=== PATIENT | male | born 1955 | race Caucasian/White ===

== ENCOUNTER 2023-03-18 05:48 | Observation (INO) ==
--- NOTE | 2023-03-10 11:25 | Anesthesiology Consultation ---
Date of Service March 10, 2023 Assessment & Plan (1) Encounter for pre-operative examination: - Per skid worker on 03/10/2023: No known infectious disease contacts, current infectious disease symptoms in past 10 days or COVID positive test result in the past 90 days. Chart Review Chart Review: Acceptable Risk for Surgery and Patient NOT seen in Pre Admission Testing History Surgery Operation Date: 03/18/23 07:30 Proposed Procedures p Laparoscopic Robotic Assisted Radical Retropubic Prostatectomy, Possible Open, Possible Lymph Node Dissection - Juaquin Skelton MD Height/Weight Height: 5 ft 7 in Weight: 74.843 kg Allergies Allergy/AdvReac Type Severity Reaction Status Date / Time No Known Drug Allergies Allergy Verified 02/10/23 13:18 Medications Home Medications Medication Instructions Recorded Confirmed Last Taken losartan 50 mg tablet 50 mg PO QPM 09/11/22 03/10/23 Unknown tamsulosin 0.4 mg capsule (Flomax) 0.4 mg PO QPM 09/11/22 03/10/23 Unknown psyllium husk 3.4 gram/5.4 gram 1 tbsp PO QAM 03/10/23 03/10/23 Unknown oral powder (Metamucil) Past Medical History Medical History Colon polyps Detached retina, bilateral laser surgical repair Fractured pelvis May 2022 - doing well currently. HTN (hypertension) Prostate cancer dx 2022 Past Family History Family History Father Hypertension Cancer Prostate Brother Cancer Prostate Other No family history of adverse response to anesthesia No family history of bleeding disorder Past Surgical History Surgical History H/O cataract removal with insertion of prosthetic lens H/O prostate biopsy (~10/2022) History of colonoscopy History of detached retina repair bilateral S/P tonsillectomy Social History Smoking Status: Never smoker Do You Dip or Chew Tobacco: No (quit) Hx Alcohol Use: Yes Alcohol type: beer alcohol intake frequency: holidays/special occasions only Hx Substance Use: No substance use type: does not use Lab Results Anesthesia Preop Results Results Anesthesia Widget: WBC 5.09 K/ul (4.8-10.8) 02/25/23 Hgb 13.7 g/dl (14.0-18.0) L 02/25/23 Hct 41.3 % (42.0-52.0) L 02/25/23 Plt 200 K/uL (130-400) 02/25/23 Na 140 mmol/L (136-145) 02/25/23 K 4.3 mmol/L (3.5-5.1) 02/25/23 Cl 109 mmol/L (98-107) H 02/25/23 CO2 27 mmol/L (21-32) 02/25/23 BUN 23 mg/dl (6-23) 02/25/23 Creat 0.88 mg/dl (0.6-1.4) 02/25/23 Glucose Level 97 mg/dl (70-99(Fasting)) 02/25/23 TSH 0.988 uIU/mL (0.30-4.50) 01/17/23 Testing Electrocardiogram Date: 02/25/23 Sinus rhythm, rate 60 bpm Abnormal left axis deviation Nonspecific T wave abnormality Chest X-Ray Date: 02/25/23 Negative for active cardiopulmonary disease
[2023-03-18] MEDS ORDERED: HEPARIN SOD 5,000 UNIT/0.5 ML VIAL SQ SCH (06:00)
[2023-03-18] MEDS ORDERED: LR 15ML/HR IV SCH (06:00)
[2023-03-18] MEDS ORDERED: LACTATED RINGER'S 1,000 ML IV SCH (06:00)
[2023-03-18] MEDS ORDERED: fentaNYL citrate PF 100 MCG/2 ML VIAL ONE (06:46)
[2023-03-18] MEDS ORDERED: KETAMINE 50 MG/5 ML SYRINGE ONE (06:46)
[2023-03-18] MEDS ORDERED: SUGAMMADEX SODIUM 200 MG/2 ML VIAL IV ONE (06:46)
[2023-03-18] MEDS ORDERED: MIDAZOLAM HCL 1 MG/ML 2ML VIAL ONE (06:46)
[2023-03-18] MEDS ORDERED: ONDANSETRON INJ 2 MG/ML 2 ML VIAL ONE (07:00)
[2023-03-18] MEDS ORDERED: DEXAMETHASONE SOD INJ 4 MG/ML VIAL ONE (07:00)
[2023-03-18] MEDS ORDERED: LIDOCAINE 2% 2 ML VIAL/AMP(20MG/ML) INFIL ONE (07:00)
[2023-03-18] MEDS ORDERED: PROPOFOL IV EMULSION 10 MG/ML 20 ML VIAL IV ONE (07:00)
[2023-03-18] MEDS ORDERED: ROCURONIUM BROMIDE 10 MG/ML 5 ML VIAL IV ONE (07:00)
[2023-03-18] MEDS ORDERED: BUPIVACAINE 0.5 % 5 MG/1 ML MPF 30ML VIAL ONE (07:17)
--- NOTE | 2023-03-18 07:33 | History & Physical Report ---
Date of Service March 18, 2023 Assessment & Plan (1) Prostate cancer: Plan: Presenting today for definitive treatment in the form of prostatectomy with lymph node dissection - risks, benefits, and expectations reviewed History of Present Illness Primary Care Provider: Chirag Suarez Prostate cancer - here for definitive treatment Allergies Allergy/AdvReac Type Severity Reaction Status Date / Time No Known Drug Allergies Allergy Verified 03/18/23 06:34 Home Medications Medication Instructions Recorded Confirmed Type losartan 50 mg tablet 50 mg PO QPM 09/11/22 03/18/23 History tamsulosin 0.4 mg capsule (Flomax) 0.4 mg PO QPM 09/11/22 03/18/23 History psyllium husk 3.4 gram/5.4 gram 1 tbsp PO QAM 03/10/23 03/18/23 History oral powder (Metamucil) Past Med/Surg History Medical History Colon polyps Detached retina, bilateral laser surgical repair Fractured pelvis May 2022 - doing well currently. HTN (hypertension) Prostate cancer dx 2022 Surgical History H/O cataract removal with insertion of prosthetic lens H/O prostate biopsy (~10/2022) History of colonoscopy History of detached retina repair bilateral S/P tonsillectomy Family History Father Hypertension Cancer Prostate Brother Cancer Prostate Other No family history of adverse response to anesthesia No family history of bleeding disorder Social History Smoking Status: Never smoker Second Hand Exposure: No; Do You Dip or Chew Tobacco: No (quit); Tobacco Cessation Education Requested by Patient: No Hx Alcohol Use: Yes Alcohol type: beer Hx Substance Use: No Preferred Language: Italian Communication Ability: Effective Hearing Ability: Use of Hearing Aid Pier Runner Required: No Beliefs That Will Affect Care: None marital status: / Current Living Situation: Family Current Living Situation Comment: lives with daughter current occupational status: retired Other Information That Helps Us Care for You: No Feels Safe at Home: Yes Safety Concerns: Feels Safe At This Time during the past year weight has: remained stable Physical Activity Frequency Comment: remains physically active Assistive Devices: Hearing Aid - Bilateral Physical Exam Constitutional: well developed and well nourished Neck: neck nontender Respiratory: normal respiratory effort; no respiratory distress and does not use accessory muscles Cardiovascular: Rate/Rhythm: regular rate Vessels: radial pulses present Extremities: no edema Gastrointestinal (Abdomen): Inspection/Auscultation: abdomen normal to inspection Percussion/Palpation: abdomen soft; abdomen nontender and no guarding Musculoskeletal: Head/Neck/Chest: normocephalic and head atraumatic Extremities: extremities normal to inspection Skin: no rashes and no lesions Trauma: no evidence of skin trauma Neurologic: awake; not obtunded Speech / Cognition: normal speech Motor/Sensory: no tremor Psychiatric: Orientation: alert and oriented x 3 Genitourinary: no CVA tenderness Lymphatic: no lymphadenopathy Results & Data Vital Signs (Past 12 Hours) Vital Signs Temp Pulse Resp BP Pulse Ox O2 Del Method 03/18/23 06:39 36.5 C 67 20 150/82 H 98 Room Air
[2023-03-18] MEDS ORDERED: ePHEDrine sulfate 50 MG/ML AMP IV PRN (08:13)
[2023-03-18] MEDS ORDERED: ONDANSETRON INJ 2 MG/ML 2 ML VIAL IV PRN ×2 (08:13→12:00)
[2023-03-18] MEDS ORDERED: ATROPINE SULFATE 0.1 MG/ML 10ML SYR IV PRN (08:13)
[2023-03-18] MEDS ORDERED: SURGICEL ABSORB HEMOSTAT 2IN X 14IN TOP ONE (08:41)
[2023-03-18] MEDS ORDERED: FLOSEAL HEMOSTATIC MATRIX 10ML TOP ONE (10:06)
--- NOTE | 2023-03-18 10:33 | Operative Report ---
[facility] Post Operative Report Pre & Post Diagnosis Operation Date: 03/18/23 07:30 Pre-Op Diagnosis: Prostate Cancer, Elevated PSA Post-Op Diagnosis: Prostate Cancer, Elevated PSA I identified the patient and participated in the time-out.: Yes Procedure Operation Date: 03/18/23 07:30 Actual Procedures p Robotic Assisted Laparoscopic Radical Retropubic Prostatectomy, Pelvic Lymph Node Dissection(Not Applicable) - Juaquin Skelton MD Surgeon Juaquin Skelton MD Blend Plant Operator Elisha Woods Estimated Blood Loss 100 Findings Consistent with Post-Op Diagnosis Specimens 1. Periprostatic fat 2. Right pelvic lymph nodes 3. Left pelvic lymph nodes 4. Prostate and seminal vesicles Description of Procedure The patient was identified in the preoperative holding area, appropriate informed consents were reviewed and completed, and he was transported to the operating suite. Subcutaneous heparin was administered in the pre-operative holding area. Upon arrival in the operating suite, he received appropriate antibiotics and general anesthesia. He was positioned in dorsal lithotomy, a B&O suppository was inserted after digital rectal exam, and he was prepped and draped in standard fashion. A Brasher catheter was inserted in the sterile field. A Veress needle was passed per umbilicus with uniform insufflation of the abdomen to 15mmHg. He was placed in steep Trendelenburg position. A periumbilical incision was then made to accommodate a 12mm Visiport with 10mm 0degree laparoscope. Inspection of the abdomen was carried out, and there was no evidence of traumatic entry or injury secondary to the Veress needle. After confirming a clear anterior abdominal wall, ports were subsequently placed in standard robotic prostatectomy fashion without incident. To begin the robotic portion of the case, the left lateral aspect of the sigmoid was mobilized off of the left pelvic side wall to allow the pouch of Danielito to be appropriately visualized. I then made an incision in the pouch of Danielito, overlying the seminal vesicles. Both SVs as well as the ampullae of the vasa were entirely dissected, with the vasa transected 3cm from the prostate. The medial umbilical ligaments were then controlled with bipolar electrocautery just inferior to the umbilicus. Following cauterization, they were divided utilizing monopolar cautery. A peritoneal incision was carried from this location to the medial aspect of the internal inguinal rings bilaterally with care to avoid opening through the ring. This incision was concluded when the vas deferens was reached. Dissection of the bladder and prostate off of the posterior aspect of the pubic arch was completed allowing full visualization of the prostate. The fat overlying the prostate was removed en bloc and passed off the table as a specimen labeled "periprostatic fat". The endopelvic fascia was cleared during this portion of the procedure, and subsequently opened - first on the right and then the left. The incision through the endopelvic fascia began near the prostate-bladder junction and was carried to the apex with extreme care to preserve all lateral levator musculature as well as the periurethral musculature and sphincter complex. I additionally preserved the puboprostatic ligaments. I then controlled the DVC with a 3-0 V-lock suture in overla pping/figure of 8 fashion. The lymph node dissection was then conducted. External iliac vessels were identified on the pelvic side wall. The packet of fat and lymphatic tissue that resides just under the iliac vein was elevated and off of the vein with a split and roll technique. The packet was dissected laterally to the circumflex vein and distally to the obturator nerve which was preserved. The proximal aspect of the packet was carried towards the bifurcation of the iliac vessels. A combination of monopolar and bipolar cautery were used to assist with control. After completing the dissection on both sides, the packets were collected and passed off of the table as specimens labeled "pelvic lymph nodes". My attention then returned to the prostate, with identification of the bladder neck aided by gentle traction on the Brasher catheter and lateral to medial pressure at the presumed level of the bladder neck with the robotic instruments. An anterior cystotomy was made, the Brasher balloon deflated and the catheter guided through the incision to allow anterior retraction. I attempted to preserve maximal bladder neck musculature as I circumferentially dissected around the bladder neck. After incision through the posterior aspect of the mucosa, the dissection was carried through detrusor muscle until the bilateral ampullae of the vasa were identified. The previously dissected vasa and SVs were brought through the incision and used to elevated the prostate anteriorly. A posterior plane behind the prostate was then developed - splitting Denonvilliers's fascia. This dissection was carried as far as possible towards the apex as well as far as possible laterally. An incision in the lateral prostatic fascia was then made bilaterally to facilitate control of the vascular pedicles and preservation of the nerve bundles. Vasculature running along the posterior/lateral aspect of the prostate was preserved as well as the tissue containing the nerves. The pedicles were then controlled with a series of Weck clips. The apical attachments of the prostate were remaining at that stage. The DVC was divided after control with bipolar cautery over the prostate. Continuous inspection from anterior and lateral views allowed me to closely follow the apical contour of the prostate and maximally preserve urethral length and tissue. The prostate was entirely freed at that point, and collected in an EndoCatch bag before being moved out of the field of vision. Hemostasis was confirmed and anastomosis of the bladder and urethra was completed utilizing a double armed V- Lock stitch. A new Brasher catheter was inserted and the anastomosis tested with irrigation. There was no evidence of leak. A edvin style stitch was placed bilaterally to functionally marsupialize the area of the lymph node dissection. The robot was undocked, the specimen extracted through expansion of the nery- umbilical camera port. The fascia was closed with a series of 0-PDS figure of 8 stitches. The right sociology research assistant port was closed in two layers - with a figure of 8 0-Vicryl to reapproximate the fascia followed by 4-0 Monocryl to close the skin. Monocryl was used to close all other skin incisions. All wounds were dressed with Dermabond. The case was concluded and the patient taken to the PACU in stable condition. Elisha Woods assisted from incision to closure I attest to the content of the Intraoperative Record and any orders documented therein. Any exceptions are noted below.
[2023-03-18] MEDS: HYDROmorphone INJ 1 MG/ML SYRINGE IV PRN ×2 (11:03→11:08)
[2023-03-18 11:08] LABS: Hematocrit (blood only) 38.6 % (42.0-52.0); Hemoglobin 13.1 g/dl (14.0-18.0); Mean Corpuscular Hemoglobin 30.9 pg (25.0-34.0); Mean Corpuscular Hgb Conc 33.9 g/dL (32.0-36.0); Mean Platelet Volume 10.9 fL (9.4-12.4); Platelet Count 193 K/uL (130-400); RDW Standard Deviation 40.2 fL (36.4-46.3); Red Blood Count 4.24 M/uL (4.70-6.10); White Blood Count 12.84 K/ul (4.8-10.8)
[2023-03-18 11:25] LABS: BUN Creatinine Ratio 22.4 (10-20); Calcium 8.9 mg/dl (8.6-10.3); Creatinine Clr Calc Pharmacy 67.4 ml/min; Est GFR (African American) 91.4 ml/min; Est GFR (Non-African American) 78.9 ml/min; Potassium 4.2 mmol/L (3.5-5.1)
[2023-03-18 11:31] LABS: Basophils # (auto) 0.03 K/uL (0-0.2); Basophils % (auto) 0.2 %; Immature Granulocytes # (auto) 0.04 K/uL (0.01-0.20); Immature Granulocytes % (auto) 0.3 %; Lymphocytes # (auto) 0.62 K/uL (1.2-3.4); Lymphocytes % (auto) 4.8 %; Monocytes # (auto) 0.18 K/uL (0.11-0.59); Monocytes % (auto) 1.4 %; Neutrophils # (auto) 11.97 K/uL (1.40-6.50); Neutrophils % (auto) 93.3 %
[2023-03-18] MEDS ORDERED: MoRPHine SULFATE 2 MG/ML CARP IV PRN (11:58)
[2023-03-18] MEDS ORDERED: oxyCODONE HCL IR 5 MG TAB (IMMEDIATE RELEASE) PO PRN (11:58)
[2023-03-18] MEDS ORDERED: MoRPHine SULFATE 4 MG/ML 1 ML CARP\\VIAL IV PRN (11:58)
[2023-03-18] MEDS: LACTATED RINGER'S 1,000 ML IV SCH ×2 (12:20→22:15)
[2023-03-18] MEDS: ACETAMINOPHEN 325 MG TAB PO SCH ×3 (12:20→23:33)
--- NOTE | 2023-03-18 12:55 | Anesthesiology Progress Note ---
Date of Service March 18, 2023 Anesthesia Post Procedure Vital Signs Vital Signs: Temp Pulse Pulse Resp BP Pulse Ox O2 Del Method 03/18/23 12:15 88 L Room Air 03/18/23 12:43 70 16 143/71 H 95 Nasal Cannula 03/18/23 12:16 75 16 151/71 H 96 Nasal Cannula 03/18/23 11:50 36.3 C L 73 17 147/73 H 93 Room Air 03/18/23 11:25 67 16 144/74 H 95 Nasal Cannula 03/18/23 11:15 36.4 C L 66 12 141/79 H 95 Nasal Cannula 03/18/23 11:05 67 14 139/73 95 Oxymask 03/18/23 10:55 70 14 118/50 L 95 Oxymask 03/18/23 10:45 65 18 117/66 99 Oxymask 03/18/23 10:35 36.7 C 66 16 116/59 L 97 Oxymask 03/18/23 06:39 36.5 C 67 20 150/82 H 98 Room Air O2 Flow Rate 03/18/23 12:15 03/18/23 12:43 2 03/18/23 12:16 2 03/18/23 11:50 03/18/23 11:25 3 03/18/23 11:15 3 03/18/23 11:05 4 03/18/23 10:55 4 03/18/23 10:45 6 03/18/23 10:35 8 03/18/23 06:39 Pain Intensity Abdomen: Pain Intensity: 3 Transfer of Care Handoff Completed per policy Notes Mental Status: alert / awake / arousable and participated in evaluation Nausea / Vomiting: adequately controlled Pain: adequately controlled Airway Patency, RR, SpO2: stable & adequate BP & HR: stable & adequate Hydration State: stable & adequate Anesthetic Complications: no major complications apparent and Pt Satisfied with anesthetic care
[2023-03-18] MEDS: ceFAZolin 2000MG 2,000 MG/15 ML SYR IV SCH ×2 (16:41→23:33)
[2023-03-18] MEDS: DOCUSATE SODIUM 100 MG CAP PO SCH (20:13)
[2023-03-18] MEDS: oxyCODONE HCL IR 5 MG TAB (IMMEDIATE RELEASE) PO PRN (20:13)
[2023-03-18] MEDS: HEPARIN SOD 5,000 UNIT/0.5 ML VIAL SQ SCH (20:41)
[2023-03-18] MEDS ORDERED: LOSARTAN POTASSIUM 50 MG TAB PO SCH (21:00)
[2023-03-18] MEDS ORDERED: Nursing to Pharmacy Communication SCH (22:45)
[2023-03-19] MEDS: ACETAMINOPHEN 325 MG TAB PO SCH (05:38)
[2023-03-19] MEDS: oxyCODONE HCL IR 5 MG TAB (IMMEDIATE RELEASE) PO PRN ×2 (05:38→11:05)
[2023-03-19] MEDS: DOCUSATE SODIUM 100 MG CAP PO SCH (08:05)
[2023-03-19 08:21] LABS: Basophils # (auto) 0.02 K/uL (0-0.2); Basophils % (auto) 0.1 %; Hematocrit (blood only) 35.7 % (42.0-52.0); Hemoglobin 12.2 g/dl (14.0-18.0); Immature Granulocytes # (auto) 0.05 K/uL (0.01-0.20); Immature Granulocytes % (auto) 0.4 %; Lymphocytes # (auto) 1.49 K/uL (1.2-3.4); Lymphocytes % (auto) 10.6 %; Mean Corpuscular Hemoglobin 30.7 pg (25.0-34.0); Mean Corpuscular Hgb Conc 34.2 g/dL (32.0-36.0); Mean Corpuscular Volume 89.9 fL (80.0-100.0); Mean Platelet Volume 11.4 fL (9.4-12.4); Monocytes # (auto) 1.26 K/uL (0.11-0.59); Neutrophils % (auto) 79.9 %; Platelet Count 192 K/uL (130-400); RDW Coefficient of Variation 12.1 % (11.5-14.5); RDW Standard Deviation 39.8 fL (36.4-46.3); Red Blood Count 3.97 M/uL (4.70-6.10); White Blood Count 14.02 K/ul (4.8-10.8)
[2023-03-19 08:45] LABS: BUN Creatinine Ratio 19.3 (10-20); Calcium 8.8 mg/dl (8.6-10.3); Creatinine Clr Calc Pharmacy 79.6 ml/min; Est GFR (African American) 104.8 ml/min; Est GFR (Non-African American) 90.4 ml/min; Potassium 4.2 mmol/L (3.5-5.1)
[2023-03-19] MEDS ORDERED: PSYLLIUM or GUAR GUM FIBER POWDER PACKET PO SCH (09:00)
--- NOTE | 2023-03-19 09:43 | Urology Progress Note ---
Date of Service March 19, 2023 Assessment & Plan (1) Prostate cancer: Plan: Postop day #1 status post prostatectomy Continue ambulation Advance diet Discharge home Admission and Anticipated Discharge Date Admission Date: March 18, 2023 Subjective Doing great after his surgery yesterday Ready for discharge home Urine is clear Labs are stable [facility] Abdomen soft Physical Exam Physical Exam: Incisions appropriate Abdomen soft Urine clear Results & Data Vital Signs (Past 12 Hours) Vital Signs Temp Pulse Resp BP Pulse Ox O2 Del Method 03/19/23 07:11 36.9 C 53 L 16 122/80 94 Room Air 03/19/23 04:11 36.7 C 65 18 123/63 94 Room Air 03/18/23 22:36 36.7 C 70 16 133/61 95 Room Air [facility] Care Time/CCT Total # of Minutes Spent Total Time Spent with Patient: Total time spent is greater than 50% in coordination of care (as documented) at patient's floor/unit and/or counseling patient: Coding Level of Care Code None Diagnoses Prostate cancer C61
--- NOTE | 2023-03-19 10:01 | Discharge Summary ---
Date of Service March 19, 2023 Admission HPI Per Admitting Provider Prostate cancer - here for definitive treatment Admission Exam Per Admitting Provider Constitutional well developed and well nourished Neck neck nontender Respiratory normal respiratory effort; no respiratory distress and does not use accessory muscles Cardiovascular Rate/Rhythm: regular rate Vessels: radial pulses present Extremities: no edema Gastrointestinal (Abdomen) Inspection/Auscultation: abdomen normal to inspection Percussion/Palpation: abdomen soft; abdomen nontender and no guarding Musculoskeletal Head/Neck/Chest: normocephalic and head atraumatic Extremities: extremities normal to inspection Skin no rashes and no lesions Trauma: no evidence of skin trauma Neurologic awake; not obtunded Speech / Cognition: normal speech Motor/Sensory: no tremor Psychiatric Orientation: alert and oriented x 3 Genitourinary no CVA tenderness Lymphatic no lymphadenopathy Principal Diagnosis Prostate Cancer Discharge Exam General: well-appearing, no acute distress HEENT: Normocephalic, mucous membranes moist Pulmonary: Nonlabored respirations Abdomen: Nondistended Extremities: Moves all 4 spontaneously Neuro: No gross deficits Psych: alert and oriented, normal mood Skin: Warm, dry, no rashes noted : Brasher draining clear yellow urine Discharge Data Allergies Allergy/AdvReac Type Severity Reaction Status Date / Time No Known Drug Allergies Allergy Verified 03/18/23 06:34 Procedures Performed Operation Date: 03/18/23 07:30 Actual Procedures p Robotic Assisted Laparoscopic Radical Retropubic Prostatectomy, Pelvic Lymph Node Dissection(Not Applicable) - Juaquin Skelton MD Hospital Course (1) Prostate cancer: Postop day #1 status post prostatectomy No acute issues overnight Afebrile with stable vitals Labs reviewed and as expected post op Pain adequately controlled Incisions appropriate Continue ambulation Advance diet Discharge home today with Brasher catheter Outpatient follow-ups in place Expected clinical course reviewed, all questions answered Total Time Total Time Spent Total Time Spent (In Minutes): 29 Discharge Plan Discharge Items Patient Disposition: Home - Self-Care Reason For Visit: PROSTATE CANCER Discharge Diagnosis: Prostate cancer Activity: Per Instructions section Lifting: No more than 25 pounds Bathing Comment: Okay to shower after discharge, no tub bath or soaking Sexual Activity: Wait until after follow-up appointment Exercise/Sports: Wait until after follow-up appointment Driving/Machine Use: No driving while taking prescription pain medication Non-emergency contact: Surgeon Call non-emergency contact if: your pain is not controlled, you have a fever, your temperature is above 101.5, your wound has increased redness, your wound has increased drainage and your wound pain has increased Follow-up/Referrals: Juaquin Skelton MD [Physician] - 04/02/23 11:15 am Chirag Suarez [Primary Care Provider] - [facility],Nurse [FAKE FOR SCHEDULES] - 03/24/23 11:00 am Diet: Regular Addtl Attending Provider Instructions: Please take all medications as prescribed and keep all follow-ups as scheduled. Please call our office at [phone] with any questions, concerns or need to reschedule appointments for any reason. We are happy to assist you. We have sent an antibiotic to your pharmacy of choice. Please begin antibiotic as prescribed the day BEFORE your scheduled voiding trial at [facility]. Please continue antibiotic every 12 hours through the day AFTER your voiding trial. Activity: We recommend having someone with you for the first few days after surgery to help care for you. For the first 2 weeks after surgery, we would like you to get up and walk around your house. However, we recommend limit physical activity that would inc rease your heart rate. This will allow your body to rest and heal. Take naps if you feel tired. Don't lift anything heavier than 10 pounds, mow the law or ride a bicycle until your follow-up appointment. Please avoid long car rides. Home Care: Unless directed otherwise, drink 6 to 8 glasses of water a day (enough to keep your urine light colored). This will also help keep a healthy flow of urine. We recommend using a stool softener for the first two weeks to avoid constipation. Brasher Catheter or Suprapubic Catheter care: Keep the catheter well secured with either a leg back or leg strap with large bag. Empty your bag when it's about half full. You may notice some blood in the bag. This is normal after surgery and while the catheter is in place. Use mild soap (such as Dove or Dial) and water to wash the catheter and the head of your penis daily, or more frequently if needed. Return to your normal diet, we encourage good protein intake to promote healing. You may shower as normal. Please avoid tub baths or soaking until catheter removed and incisions well healed. Wearing sweat pants while you have the catheter is recommended, they will be more comfortable. Follow-up Your follow up appointments for having your catheter removed, and follow up with your physician should already be scheduled. If you have any questions regarding this, please contact our office. Your final pathology report will be discussed at your physician follow-up appointment. Call [facility] at [phone] right away if you have any of the following: Chest pain or trouble breathing (call 911 or go to the hospital) Fever of 101F or higher, uncontrolled vomiting Heavy bleeding, clots, or bright red blood from the catheter Catheter that falls out or stops draining Foul-smelling discharge from your catheter Redness, swelling, warmth, or increased pain at your incision site Drainage, pus, or bleeding from your incision Pending Studies at Discharge: Yes (Pathology) Stand-Alone Forms: [facility] [employer], Smoking Cessation Medications and DC Order Prescriptions: New ciprofloxacin HCl 500 mg tablet 500 mg PO BID Qty: 6 0RF Rx Instructions: Start 1 day prior to catheter removal docusate sodium [Colace] 100 mg capsule 100 mg PO BID Qty: 60 0RF Rx Instructions: Take twice daily for 2 weeks, then as needed for constipation. oxycodone-acetaminophen [Percocet] 5-325 mg tablet 1 tab PO TID PRN (Reason: pain) Qty: 10 0RF Continued losartan 50 mg tablet 50 mg PO QPM Metamucil 3.4 gram/5.4 gram Powder 1 tbsp PO QAM Rx Instructions: mix into at least 8 oz of water or juice before administering Discontinued tamsulosin [Flomax] 0.4 mg capsule 0.4 mg PO QPM Discharge Orders: Discharge Order (Routine); Ordered 03/19/23 Ordered By: Elisha Woods Admission Data Admit Date/Time: 03/18/23 10:37 Attending Provider: Juaquin Skelton Admit Provider: Juaquin Skelton Primary Care Provider: Chirag Suarez Coding Level of Care Code 72052 IN/OBS DISCH 30 MIN/LESS Diagnoses Prostate cancer C61
[2023-03-19] MEDS: HEPARIN SOD 5,000 UNIT/0.5 ML VIAL SQ SCH (11:04)
== END 2023-03-19 11:55 | disposition home or self-care (01) | DRG 708 ==
LOC: ASU 05:48 → INTOOBSV 10:37 → 3W 10:37